=== PATIENT | female | born 1985 | race Caucasian/White ===

== ENCOUNTER → 2022-06-29 | Outpatient (CLI) | payer MEDICAID, OTHER ==
[~2022-06-29] MED LIST: GADOBUTROL 15 MMOL/15 ML (GADAVIST) VIAL IV ONE
--- NOTE | 2022-06-30 15:19 | Diagnostic Imaging Report ---
EXAMINATION: MRI BREAST BILAT W W/O CON INDICATION: Left nipple discharge and inversion. TECHNIQUE: Utilizing a 1.5 Amanda magnet, the patient was placed in the prone position with a dedicated breast coil in place. Axial STIR, T2 fat sat, T1 and T1 fat-sat images are obtained without contrast. Postcontrast high-resolution dynamic images are also obtained. Pre and post contrasted images are then evaluated with [email or web address] for evaluation of possible angiogenesis. 8 mL of Gadavist gadolinium contrast material was administered intravenously. COMPARISON: Diagnostic mammogram and bilateral breast ultrasound performed on 04/14/2022. FINDINGS: RIGHT BREAST: The breast is composed of heterogeneous fibroglandular tissue. There is mild background parenchymal enhancement. No suspicious mass or non-mass enhancement. Small cysts are scattered along the 3 o'clock axis at middle and posterior depth, corresponding with findings on prior ultrasound. No suspicious enhancement is noted in these cystic areas. There is no axillary or internal mammary adenopathy. LEFT BREAST: The breast is composed of heterogeneous fibroglandular tissue. There is mild background parenchymal enhancement. There does appear to be nipple inversion, relative to direct comparison with the right nipple. There is no suspicious or asymmetric enhancement involving the left nipple. Adjacent, benign-appearing T2 hyperintense oval enhancing masses measuring 6 to 7 mm in the 12 o'clock middle to posterior depth breast demonstrate nonenhancing septations and are felt to represent fibroadenomas. No suspicious mass or non-mass enhancement. There is no axillary or internal mammary adenopathy. IMPRESSION: There is left nipple inversion, however, no abnormal enhancement involving the left nipple. No suspicious left nipple/breast finding was seen on recent mammogram and ultrasound exams. In light of the patient's symptoms including left nipple inversion and bloody nipple discharge, breast surgical consultation is recommended for further evaluation. No MR evidence of malignancy in the right breast. Scattered cysts along the 3 o'clock axis corresponding with findings on prior ultrasound and demonstrate no suspicious enhancement. As previously recommended, short interval follow-up right breast ultrasound is recommended to demonstrate stability of previous sonographic findings. BI-RADS Category 2: Benign RECOMMENDATIONS: Breast surgical consultation/evaluation to further evaluate left nipple inversion. Short interval follow-up right breast ultrasound, which will be due in October,. Dictated on workstation # [id number]
== END ==
LOC: EDBD → RAD 06-24 13:15
DX: N64.52 Nipple discharge (principal); N64.59 Other signs and symptoms in breast; N60.11 Diffuse cystic mastopathy of right breast
CPT/HCPCS: 77049